=== PATIENT | male | born 1980 | race Caucasian/White ===

== ENCOUNTER 2024-01-18 00:10 | Emergency (ER) | payer MEDICAID, OTHER ==
[~2024-01-18] VITALS: Ht 190.5 cm; Wt 127.0 kg
[2024-01-18] MEDS ORDERED: CEPHALEXIN MONOHYDRATE 500 MG CAPSULE PO ONE (01:28)
[2024-01-18] MEDS ORDERED: TDAP [DIPH/PERTUSSIS/TET] 0.5 ML VIAL IM ONE (01:28)
[2024-01-18] MEDS: TDAP [DIPH/PERTUSSIS/TET] 0.5 ML VIAL IM ONE (01:33)
[2024-01-18] MEDS: CEPHALEXIN MONOHYDRATE 500 MG CAPSULE PO ONE (01:33)
[2024-01-18] MEDS ORDERED: CEPH500C2 PO (01:34)
[2024-01-18 01:42] VITALS: BP 145/89; TEMP 98; O2SAT 98
== END 2024-01-18 01:43 | disposition home or self-care (01) ==
LOC: ER 00:16
DX: S61.215A Laceration without foreign body of left ring finger without damage to nail, initial encounter (principal); F17.200 Nicotine dependence, unspecified, uncomplicated; W26.0XXA Contact with knife, initial encounter
CPT/HCPCS: 90715

== ENCOUNTER 2024-07-15 21:20 | Emergency (ER) | payer MEDICAID ==
[~2024-07-15] VITALS: Ht 188 cm; Wt 99.8 kg
[~2024-07-15 21:20] MED LIST: CEPH500C2 PO
[2024-07-15 21:29] VITALS: BP 154/76; TEMP 97.9; O2SAT 98
== END 2024-07-15 21:43 | disposition home or self-care (01) ==
LOC: ER 21:27
DX: M25.572 Pain in left ankle and joints of left foot (principal); M25.562 Pain in left knee; M54.50 Low back pain, unspecified; F17.200 Nicotine dependence, unspecified, uncomplicated; Z79.899 Other long term (current) drug therapy; W10.8XXA Fall (on) (from) other stairs and steps, initial encounter; Y93.89 Activity, other specified; Y92.89 Other specified places as the place of occurrence of the external cause; Y99.8 Other external cause status